=== PATIENT | female | born 1940 | race Caucasian/White ===

== ENCOUNTER 2016-06-07 18:05 | Inpatient (IN) | payer OTHER ==
[~2016-06-07] VITALS: Ht 152.4 cm; Wt 72.4 kg
[2016-06-07 18:39] LABS: POINT-OF-CARE METER ID UU13113778
[2016-06-07 18:41] LABS: HEMATOCRIT 43.5 % (36.0-46.0); MCH 27.7 PG (29.0-34.0); MCHC 33.1 G/DL (30.0-36.0); MCV 83.8 FL (83-99); MEAN PLAT.VOLUME 10.1 uM^3 (9.5-12.4); PLATELET COUNT 229 K/uL (156-360); RBC DIS.WIDTH-CV 13.3 % (11.8-14.6); RBC DIS.WIDTH-SD 41.2 % (39-53); RED BLOOD COUNT 5.19 M/uL (3.80-5.20); WHITE BLOOD COUNT 8.3 K/uL (4.1-10.2)
[2016-06-07 18:50] LABS: CHLORIDE 99 mEq/L (99-109); POTASSIUM 3.7 mEq/L (3.7-5.4); SODIUM 136 mEq/L (136-147)
[2016-06-07 18:52] LABS: GLUCOSE 231 mg/dL (70-99)
[2016-06-07 18:54] LABS: ANION GAP 16 MEQ/L (2-14)
[2016-06-07 18:56] LABS: GFR ESTIMATE (CALCULATED) 36 mL/min/
[2016-06-07 18:57] LABS: UREA NITROGEN (BUN) 40 mg/dL (9-23)
[2016-06-07 19:23] LABS: INFLUENZA A VIRAL ANTIGEN NEGATIVE; INFLUENZA B VIRAL ANTIGEN POSITIVE
[2016-06-07 21:54] LABS: ADD MIUA? YES; BILIRUBIN NEGATIVE; BLOOD NEGATIVE; COLOR YELLOW ((YELLOW)); GLUCOSE (STRIP) NEGATIVE; KETONES NEGATIVE; LEUKOCYTES MODERATE; NITRITE NEGATIVE; PROTEIN (STRIP) 30; SPECIFIC GRAVITY 1.017 (1.000-1.030); UROBILINOGEN 0.2 MG/DL (0.2-1.0)
[2016-06-07 22:00] LABS: BACTERIA RARE /HPF; EPITHELIAL CELLS RARE /HPF; MUCUS TRACE /LPF; RED BLOOD CELLS 0-5 /HPF (0-5); UCUL ADDED? NO; WHITE BLOOD CELLS 20-30 /HPF (0-5)
[2016-06-08 02:20] VITALS: BP 137/62
[2016-06-08 04:00] VITALS: BP 139/52
[2016-06-08 07:44] LABS: HEMATOCRIT 34.3 % (36.0-46.0); MCH 27.7 PG (29.0-34.0); MCHC 33.2 G/DL (30.0-36.0); MCV 83.5 FL (83-99); PLATELET COUNT 194 K/uL (156-360); RBC DIS.WIDTH-CV 13.3 % (11.8-14.6); RBC DIS.WIDTH-SD 41.1 % (39-53); WHITE BLOOD COUNT 8.6 K/uL (4.1-10.2)
[2016-06-08 07:54] LABS: RED BLOOD COUNT 4.11 M/uL (3.80-5.20)
[2016-06-08 07:59] LABS: ANION GAP 10 MEQ/L (2-14); CHLORIDE 104 MEQ/L (99-109); GLUCOSE 173 mg/dL (70-99); POTASSIUM 3.2 MEQ/L (3.7-5.4); SAMPLE HEMOLYSIS CHECK 0; SAMPLE ICTERIC CHECK 0; SAMPLE LIPEMIA CHECK 0; SODIUM 138 MEQ/L (136-147); UREA NITROGEN (BUN) 26 mg/dL (9-23)
[2016-06-08 08:00] LABS: GFR ESTIMATE (CALCULATED) > 59 mL/min/
[2016-06-08 08:27] LABS: ABS NEUTROPHIL COUNT 6.2; ANISOCYTOSIS 1+; ATYPICAL LYMPHOCYTE 3.4 %; BAND NEUTROPHILS 3.4 % (0-8.0); BURR CELLS 1+; EOSINOPHIL ABS CT 0; MEGAKARYOCYTE 0.9; MICROCYTOSIS 1+; OVALOCYTES 1+; PLAT.SUFFICIENCY ADEQUATE; POIKILOCYTOSIS 1+
[2016-06-08 08:32] VITALS: BP 118/59
[2016-06-08 08:50] LABS: FERRITIN 112 NG/ML (10-291)
[2016-06-08 09:24] LABS: IRON < 10.0 MCG/DL (35-150)
[2016-06-08 11:52] VITALS: BP 112/58
[2016-06-08 16:20] VITALS: BP 120/62
[2016-06-08 17:49] LABS: POINT-OF-CARE METER ID UU14174225
[2016-06-08 20:00] VITALS: BP 120/68
[2016-06-09] VITALS: BP 133/73
[2016-06-09 04:31] VITALS: BP 130/62
[2016-06-09 08:10] VITALS: BP 134/74
[2016-06-09 08:49] LABS: ANION GAP 8 MEQ/L (2-14); CHLORIDE 114 MEQ/L (99-109); GFR ESTIMATE (CALCULATED) > 59 mL/min/; GLUCOSE 108 mg/dL (70-99); POTASSIUM 2.8 MEQ/L (3.7-5.4); SAMPLE HEMOLYSIS CHECK 0; SAMPLE ICTERIC CHECK 0; SAMPLE LIPEMIA CHECK 0; SODIUM 142 MEQ/L (136-147); UREA NITROGEN (BUN) 10 mg/dL (9-23)
[2016-06-09 10:12] LABS: INTERNAL CONTROL VALID? YES
[2016-06-09 11:19] LABS: C DIFF TOXIN NEGATIVE (NEGATIVE)
[2016-06-09 11:20] LABS: PROBE CHECK PASS; SPECIMEN PROCESSING CONTROL PASS
[2016-06-09 11:49] VITALS: BP 105/57; BP 131/71
[2016-06-09 16:11] VITALS: BP 135/73
[2016-06-09 20:00] VITALS: BP 133/72
[2016-06-10] VITALS: BP 136/72
[2016-06-10 04:23] VITALS: BP 137/73
[2016-06-10 08:41] VITALS: BP 131/72
[2016-06-10 09:48] LABS: EOSINOPHIL (%) 0.1 % (0-5); HEMATOCRIT 34.6 % (36.0-46.0); IMMATURE GRANULOCYTE (%) 1.1 % (0.0-0.7); IMMATURE GRANULOCYTE COUNT 0.1 K/uL; INSTRUMENT ABS NEUTROPHIL CT 7.2 K/uL; LYMPHOCYTE COUNT 1.5 K/uL (1.0-2.8); MCH 27.8 PG (29.0-34.0); MCHC 33.2 G/DL (30.0-36.0); MCV 83.8 FL (83-99); MEAN PLAT.VOLUME 9.6 uM^3 (9.5-12.4); MONOCYTE (%) 5.8 % (3-12); MONOCYTE COUNT 0.6 K/uL (0-0.8); NEUTROPHIL (%) 76.7 % (45-76); NEUTROPHIL COUNT 7.2 K/uL (1.8-6.4); PLATELET COUNT 243 K/uL (156-360); RBC DIS.WIDTH-CV 13.2 % (11.8-14.6); RBC DIS.WIDTH-SD 40.7 % (39-53); RED BLOOD COUNT 4.13 M/uL (3.80-5.20); WHITE BLOOD COUNT 9.4 K/uL (4.1-10.2)
[2016-06-10 10:16] LABS: ANION GAP 9 MEQ/L (2-14); CHLORIDE 107 MEQ/L (99-109); GFR ESTIMATE (CALCULATED) > 59 mL/min/; POTASSIUM 4.2 MEQ/L (3.7-5.4); SAMPLE HEMOLYSIS CHECK 0; SAMPLE ICTERIC CHECK 0; SAMPLE LIPEMIA CHECK 0; SODIUM 140 MEQ/L (136-147); UREA NITROGEN (BUN) 9 mg/dL (9-23)
[2016-06-10 10:25] LABS: GLUCOSE 198 mg/dL (70-99)
[2016-06-10] MEDS ORDERED: METFORMIN HCL1000 MG PO (11:53)
[2016-06-10] MEDS ORDERED: HYDROCHLOROTH12.5 M3 PO (11:54)
[2016-06-10] MEDS ORDERED: TOPROL XL100 MG PO (11:55)
[2016-06-10] MEDS ORDERED: LEVEMIR FL100 UNIT/1 SC (11:57)
[2016-06-10] MEDS ORDERED: LO-DOSE ASPIRIN81 M1 PO (12:18)
[2016-06-10 12:26] LABS: POINT-OF-CARE METER ID UU14174225
[2016-06-10 12:31] VITALS: BP 132/74
[2016-06-10] MEDS ORDERED: CRESTOR10 MG PO (12:48)
[2016-06-10 15:53] VITALS: BP 136/72
[2016-06-11 01:01] VITALS: BP 144/71
[2016-06-11 04:03] VITALS: BP 142/74
[2016-06-11 07:24] LABS: EOSINOPHIL (%) 1.1 % (0-5); EOSINOPHIL COUNT 0.1 K/uL (0-0.3); HEMATOCRIT 37.6 % (36.0-46.0); IMMATURE GRANULOCYTE (%) 1.8 % (0.0-0.7); IMMATURE GRANULOCYTE COUNT 0.2 K/uL; INSTRUMENT ABS NEUTROPHIL CT 6.2 K/uL; MCH 27.4 PG (29.0-34.0); MCV 83.2 FL (83-99); MEAN PLAT.VOLUME 9.5 uM^3 (9.5-12.4); MONOCYTE (%) 6.2 % (3-12); MONOCYTE COUNT 0.6 K/uL (0-0.8); NEUTROPHIL (%) 68.2 % (45-76); NEUTROPHIL COUNT 6.2 K/uL (1.8-6.4); PLATELET COUNT 270 K/uL (156-360); RBC DIS.WIDTH-CV 13.1 % (11.8-14.6); RBC DIS.WIDTH-SD 40.2 % (39-53); RED BLOOD COUNT 4.52 M/uL (3.80-5.20); WHITE BLOOD COUNT 9.1 K/uL (4.1-10.2)
[2016-06-11 07:43] LABS: ANION GAP 11 MEQ/L (2-14); CHLORIDE 104 MEQ/L (99-109); GFR ESTIMATE (CALCULATED) > 59 mL/min/; GLUCOSE 146 mg/dL (70-99); POTASSIUM 3.6 MEQ/L (3.7-5.4); SAMPLE HEMOLYSIS CHECK 0; SAMPLE ICTERIC CHECK 0; SAMPLE LIPEMIA CHECK 0; SODIUM 140 MEQ/L (136-147); UREA NITROGEN (BUN) 8 mg/dL (9-23)
[2016-06-11 09:25] VITALS: BP 145/75
[2016-06-11 11:59] VITALS: BP 145/75
[2016-06-11] MEDS ORDERED: OSELTAMIVIR PHO30 MG PO (12:42)
[2016-06-11] MEDS ORDERED: CEFTIN500 MG PO (12:56)
[2016-06-11] MEDS ORDERED: LANTUS 10100 UNITS/ SQ (13:34)
== END 2016-06-11 14:20 | disposition home or self-care (01) | DRG 871 ==
LOC: EME 18:05 → EDOF 06-08 00:55 → 5SOUTH 06-08 00:55
PROVIDERS: Hospitalist; Internal Medicine; Nurse Practitioner Adult Health; Physician Assistant
DX: A41.9 Sepsis, unspecified organism (principal); J18.9 Pneumonia, unspecified organism; N39.0 Urinary tract infection, site not specified; N17.9 Acute kidney failure, unspecified; J10.1 Influenza due to other identified influenza virus with other respiratory manifestations; E11.65 Type 2 diabetes mellitus with hyperglycemia; E87.6 Hypokalemia; I25.10 Atherosclerotic heart disease of native coronary artery without angina pectoris; R19.7 Diarrhea, unspecified; I10 Essential (primary) hypertension; I25.2 Old myocardial infarction; K21.9 Gastro-esophageal reflux disease without esophagitis; R09.02 Hypoxemia; Z85.3 Personal history of malignant neoplasm of breast; E78.5 Hyperlipidemia, unspecified; Z90.12 Acquired absence of left breast and nipple; Z95.5 Presence of coronary angioplasty implant and graft; E87.2 Acidosis
CPT/HCPCS: 71020; 74176; 80048; 81003; 82607; 82728; 82746; 82948; 83540; 83605; 84132 91; 84466; 85025; 85027; 87040; 87070; 87205; 87449; 87493; 87502; 94640; 94640 76; 94799; 99202; J0456; J0696; J1644; J1815; J2405; J7030; J7050